=== PATIENT | male | born 1985 | race Hispanic/Latino ===

== ENCOUNTER 2018-04-06 17:18 | Observation (INO) | payer OTHER ==
[~2018-04-06] VITALS: Ht 167.6 cm; Wt 66.8 kg
--- NOTE | 2018-04-06 17:28 | NUR ---
PATIENT BACK TO ROOM FOR EXAM VIA WHEELCHAIR.
--- NOTE | 2018-04-06 17:38 | NUR ---
PATIENT ACTIVILY VOMITING, 50 ML OF BILE LIKE FLUID IN EMESIS BAG, INFORMED OF PATIENT STATUS NEW ORDERS RECEIVED.
[2018-04-06 18:21] LABS: HEMOGLOBIN 17.4 g/dl (14.0-18.0); IMMATURE GRANULOCYTES 0.7 % (0.0-5.0); MEAN CELL VOLUME 93.3 fL CALC (80.0-100.0); MEAN CORPUSCULAR HGB 32.5 pG CALC (26.0-32.0); MEAN CORPUSCULAR HGB CONC 34.8 g/L CALC (32.0-36.0); NEUT# 15.21 thou/uL (1.82-7.42); RED BLOOD COUNT 5.36 mill/uL (4.70-6.10); RED CELL DISTRI WIDTH 12.7 % (11.5-15.5)
--- NOTE | 2018-04-06 18:24 | NUR ---
NO VOMITING NOTED SINCE GIVING 4 MG ZOFRAN IV. DENIES ANY NAUSEA AT THIS TIME. MEDICATED WITH 30 MG OF TORADOL FOR PAIN. WILL CONTINUE TO MONITOR.
[2018-04-06 18:38] LABS: BILIRUBIN, TOTAL 0.8 mg/dL (0.0-1.4); CREATININE 2.7 mg/dL (0.7-1.3); POTASSIUM 4.3 mmol/l (3.5-5.1)
[2018-04-06 18:53] LABS: ALBUMIN 5.9 g/dL (3.2-5.0); TOTAL PROTEIN 11.1 g/dL (6.3-8.2)
--- NOTE | 2018-04-06 18:55 | NUR ---
REPORT GIVEN TO LIZ COHEN. CARE RELINQUISHED.
--- NOTE | 2018-04-06 19:12 | NUR ---
TO BEDSIDE WITH MARIO/JUN BROWN TO DISCUSS RESULTS AND TREATMENT
--- NOTE | 2018-04-06 19:14 | NUR ---
LABS DRAWN BY
--- NOTE | 2018-04-06 19:31 | NUR ---
URINE SENT DARK TIFFANIE.
[2018-04-06 19:44] LABS: URINE BILIRUBIN - DIPSTICK NEGATIVE (NEGATIVE); URINE BLOOD DIPSTICK NEGATIVE (NEGATIVE); URINE CLARITY SL CLOUDY; URINE COLOR YELLOW; URINE GLUCOSE - DIPSTICK NEGATIVE (NEGATIVE); URINE KETONE TRACE mg/dL (NEGATIVE); URINE LEUK ESTERASE NEGATIVE (NEGATIVE); URINE NITRITE - DIPSTICK NEGATIVE (Negative); URINE PROTEIN - DIPSTICK 100 mg/dL (NEG-TRACE); URINE SPECIFIC GRAVITY 1.025; URINE UROBILINOGEN - DIPSTICK 0.2 E.U./dL (0.2)
[2018-04-06 19:47] LABS: BARBITURATES NEGATIVE (NEGATIVE); COCAINE NEGATIVE (NEGATIVE); METHADONE NEGATIVE (NEGATIVE); OXCYCODONE NEGATIVE (NEGATIVE); TETRAHYDROCANNABIONOL NEGATIVE (NEGATIVE); TRICYLIC ANTIDEPRESSANTS NEGATIVE (NEGATIVE)
[2018-04-06 19:50] LABS: URINE CALCIUM OXALATE CRYSTALS MANY lpf; URINE RBC 0-2 RBC/hpf (0-5); URINE WBC 0-2 WBC/hpf (0-5)
--- NOTE | 2018-04-06 20:50 | NUR ---
REPORT TO PEARL, MED SURG.
--- NOTE | 2018-04-06 20:58 | NUR ---
PT TO FLOOR WITHOUT INCIDENT. VISITOR WITH PATIENT. VISITOR PACKED UP CLOTHES AND BOOTS. TO FLOOR WITH PT. A/O NAD. NO C/O. VSS.
--- NOTE | 2018-04-06 21:15 | NUR ---
PT ARRIVED TO FLOOR VIA STRETCHER ACCOMPANIED BY ED NURSE AND FAMILY MEMBER. PT APPEARS TO BE IN STABLE CONDITION UPON ARRIVING TO THE FLOOR. SELF AMBULATED TO STANDING SCALE AND BED. PT IS NOW BEING ORIENTED TO ROOM,CALL SYSTEM,LIGHTS, TV AND BED. IV SITE APPEARS HEALTHY AND IS PATENT.
[2018-04-06 21:20] VITALS: BP 114/66
--- NOTE | 2018-04-06 21:35 | NUR ---
PT ASSESSED, LUNG SOUNDS ARE CLEAR, PT LOCX4, ABD FIRM NON-TENDER, SKIN AND NEURO'S INTACT. PT DENIES ANY PAIN/N/V AT THIS TIME. DENIES HAVING ANY DIZZINESS. IV FLUIDS ARE RUNNING AT THIS TIME ORDERED. FAMILY MEMBER IS AT BEDSIDE. PT ENCOURAGED TO CALL IF ANY NEEDS ARISE. PO FLUIDS PROVIDED FOR COMFORT. DENIES ANY OTHER NEEDS AT THIS TIME.
--- NOTE | 2018-04-07 | NUR ---
PT IS SLEEPING AT THIS TIME. AIDE IN TO OBTAIN V/S. IV FLUIDS ARE RUNNING/SITE APPEARS HEALTHY. PT DENIES ANY OTHER NEEDS AT THIS TIME.
[2018-04-07 00:05] VITALS: BP 109/51
--- NOTE | 2018-04-07 01:54 | NUR ---
ED CALLED TO REPORT HR IN 40'S. PT ASSESSED, HE WAS SLEEPING SOUNDLY,BUT AWOKE TO MY VOICE. PT ASSISTED WITH ADDITIONAL BLANKETS AND AIR SETTINGS. PT IS ATTEMPTING TO RETURN TO SLEEP. WILL CONTINUE TO MONITOR CLOSELY.
--- NOTE | 2018-04-07 03:28 | NUR ---
PT ASSISTED TO RESTROOM, 175 DARK YELLOW URINE EMPTIED FROM URINAL. IV FLUIDS REPLENISHED AT THIS TIME. DENIES ANY OTHER NEEDS. PT REMINDED TO DRINK PO FLUIDS. CALL LIGHT AT SIDE AND PT REORIENTED TO USE
[2018-04-07 03:33] VITALS: BP 115/61
--- NOTE | 2018-04-07 04:01 | NUR ---
ED CALLED TO REPORT POSSIBLE ST ELEVATION ON PT TELEMETRY. PT IS ASYMPTOMATIC V/S ARE STABLE, HR LIZZY@55. RESPIRATORY IS IN WITH PT AT THIS TIME OBTAINING EKG. LAB TROPONIN AND MYOGLOBIN ORDERED AT THIS TIME.
[2018-04-07 04:19] LABS: MEAN CELL VOLUME 94.9 fL CALC (80.0-100.0); MEAN CORPUSCULAR HGB 32.8 pG CALC (26.0-32.0); MEAN CORPUSCULAR HGB CONC 34.5 g/L CALC (32.0-36.0); RED BLOOD COUNT 4.15 mill/uL (4.70-6.10); RED CELL DISTRI WIDTH 12.8 % (11.5-15.5)
[2018-04-07 04:21] LABS: HEMATOCRIT 39.4 % (39.0-50.0); HEMOGLOBIN 13.6 g/dl (14.0-18.0)
[2018-04-07 04:30] LABS: ANION GAP 14 (6-22 (CALC)); BUN 18 mg/dL (9-20); CARBON DIOXIDE 27 mmol/l (22-30); CHLORIDE 104 mmol/l (95-108); MAGNESIUM 1.9 mg/dL (1.6-2.3); SODIUM 141 mmol/l (137-146)
[2018-04-07 04:34] LABS: BUN/CREATININE RATIO 16 (12-20 (CALC)); CREATININE 1.1 mg/dL (0.7-1.3); GFR > 60 ML/MIN (>=60 (CALC)); GFR FOR AFR.AMER. > 60 ML/MIN (>=60 (CALC))
[2018-04-07 04:42] LABS: MYOGLOBIN 116 ng/mL (0 - 121)
--- NOTE | 2018-04-07 07:10 | NUR ---
REPORT RECEIVED FROM LIZ KANG;PT APPEARS TO BE SLEEPING IN SEMI FOWLERS POSITION;RESPIRATIONS APPEAR EVEN AND UNLABORED ON RA;NO S/S OF DISTRESS NOTED;IV SITE PATENT INFUSING NS @ 150ML/HR;FALL PRECAUTIONS IN PLACE WITH BED IN THE LOWEST POSITION;CALL LIGHT IN REACH;WILL CONTINUE TO MONITOR
[2018-04-07 08:08] VITALS: BP 134/70
--- NOTE | 2018-04-07 08:10 | NUR ---
PT RESTING IN HIGH FOWLERS POSITION EATING BREAKFAST;A&O X3;VS OBTAINED AND ASSESSMENT COMPLETED;PT DENIES ANY CURRENT ABD PAIN OR NAUSEA,PAIN SCALE AND REPORTING EDUCATED;RESPIRATIONS EVEN AND UNLABORED ON RA,CLEAR LUNG SOUNDS NOTED;ABDOMEN SOFT ON PALPATION AND ACTIVE IN ALL 4 QUADRANTS;STRONG PEDAL PULSES;#20G TO RAC INFUSING NS @ 150ML/HR,SITE APPEARS HEALTHY;TELE MONITOR IN PLACE;PT EDUCATED ON POC AND VERBALIZES UNDERSTANDING;PO FLUIDS ENCOURAGED;PT DENIES ANY OTHER CURRENT NEEDS AND IS INSTUCTED TO CALL FOR ASSISTANCE IF NEEDED;CALL LIGHT IN REACH;WILL CONTINUE TO MONITOR
[2018-04-07 10:56] VITALS: BP 129/60
--- NOTE | 2018-04-07 12:00 | NUR ---
PT RESTING IN RECLINER;PT DENIES ANY CURRENT PAIN OR NEEDS;RESPIRATIONS EVEN AND UNLABORED ON RA;IV SITE PATENT INFUSING NS @ 150ML/HR;TELE MONITOR IN PLACE;ASSESSMENT UNCHANGED AT THIS TIME;DISCHARGE DISCUSSED AND PT VERBALIZES UNDERSTANDING;ENCOURAGED PT TO CALL FOR ASSISTANCE IF NEEDED;CALL LIGHT IN REACH;WILL CONTINUE TO MONITOR
--- NOTE | 2018-04-07 12:45 | NUR ---
ALL DISCHARGE INFORMATION DISCUSSED AT THIS TIME;PT ENCOURAGED TO INCREASE PO FLUIDS DAILY AND FOLLOW UP WITH THE HEALTH DEPARTMENT;PT DENIES ANY OTHER CURRENT NEEDS;IV SITE REMOVED WITH CATHETER INTACT;PT REFUSED WHEELCHAIR FOR DISCHARGE.
--- NOTE | 2018-04-07 12:50 | NUR ---
Discharge instructions given. Patient verbalizes understanding of same. Discharged in stable condition via Ambulatory to HOME with family. All belongings sent with pt.
== END 2018-04-07 12:50 | disposition home or self-care (01) | DRG 684 ==
LOC: ED 17:18 → ED-I 19:00 → ED 20:41 → MS2 20:42
PROVIDERS: Emergency Medicine; ADMIT Internal Medicine; ATTEND Internal Medicine
DX: N17.9 Acute kidney failure, unspecified (principal); E86.0 Dehydration; X30.XXXA Exposure to excessive natural heat, initial encounter; Y93.H9 Activity, other involving exterior property and land maintenance, building and construction; Y99.0 Civilian activity done for income or pay
CPT/HCPCS: G0378